=== PATIENT | male | born 1980 ===

== ENCOUNTER 2018-03-13 08:03 | Emergency (ER) | payer SELFPAY ==
[2018-03-13 08:12] VITALS: TEMP 99
--- NOTE | 2018-03-13 08:34 | C.PDOC ---
History Of Present Illness 37-year-old male, presents to the emergency department with complaints of nasal congestion and sore throat x1 day. Patient states he [place] He denies cough, fever, chest pain, shortness of breath, nausea/vomiting, abdominal pain, rash, or any other associated symptoms. Time Seen by Provider: 03/13/18 08:13 Chief Complaint (Nursing): ENT Problem History Per: Patient History/Exam Limitations: None Past Medical History Reviewed: Historical Data, Nursing Documentation, Vital Signs Vital Signs: Last Vital Signs Temp 99 F 03/13/18 08:10 Pulse 93 H 03/13/18 08:10 Resp 20 03/13/18 08:10 BP 158/94 H 03/13/18 08:10 Pulse Ox 99 03/13/18 08:10 - [facility] NEBULIZER THERAPY (09/27/13) Family History: States: No Known Family Hx - Social History Hx Alcohol Use: Yes Hx Substance Use: No Review Of Systems Constitutional: Negative for: Fever ENT: Positive for: Nose Congestion, Throat Pain Cardiovascular: Negative for: Chest Pain, Palpitations Respiratory: Negative for: Cough Gastrointestinal: Negative for: Nausea, Vomiting Physical Exam - Physical Exam Appears: Non-toxic, No Acute Distress Skin: Warm, Dry, No Rash Head: Atraumatic, Normacephalic Eye(s): bilateral: Normal Inspection, PERRL, EOMI Nose: Normal Oral Mucosa: Moist Lips: Normal Appearing Throat: Erythema, Exudate (R>L), No Drooling, No Mass, Other (tonsillar swelling, uvula midline) Neck: Normal ROM, Supple Lymphatic: Adenopathy (submandibular lymphadenopathy) Chest: Symmetrical Cardiovascular: Rhythm Regular Respiratory: Normal Breath Sounds, No Accessory Muscle Use Extremity: Normal ROM Neurological/Psych: Oriented x3, Normal Speech ED Course And Treatment O2 Sat by Pulse Oximetry: 99 Pulse Ox Interpretation: Normal (RA) Progress Note: Pt afebrile. Tolerating PO. Discussed symptomatic treatment and follow up with PMD /clinic in 1-2 days. Disposition - Disposition Disposition: HOME/ ROUTINE Disposition Time: 08:34 Condition: STABLE Additional Instructions: Follow up with the clinic in 1-2 days. Return to ER if symptoms persist or worsen. Prescriptions: Amoxicillin 875 mg PO BID #20 tablet Ibuprofen [Motrin] 600 mg PO Q6 PRN #20 tab PRN Reason: Pain, Mild (1-3) Oxymetazoline 0.05% [Afrin 0.05%] 2 spr NS Q12H #1 bottle Instructions: Sore Throat, Adult (DC) Forms: [facility] (Hungarian) - Clinical Impression Clinical Impression: Acute bacterial tonsillitis - Scribe Statement The provider has reviewed the documentation as recorded by the Scribe (Akua Prabhakar) All medical record entries made by the Scribe were at my direction and personally dictated by me. I have reviewed the chart and agree that the record accurately reflects my personal performance of the history, physical exam, medical decision making, and the department course for this patient. I have also personally directed, reviewed, and agree with the discharge instructions and disposition.
[2018-03-13 08:45] VITALS: BP 146/88; PULSE 82; RESP 18
[2018-03-13 10:00] VITALS: O2SAT 99
== END 2018-03-13 08:50 | disposition home or self-care (01) ==
LOC: C.ER 08:03
DX: J03.90 Acute tonsillitis, unspecified (principal)